=== PATIENT | female | born 1980 | race Caucasian/White ===

== ENCOUNTER → 2024-04-17 08:53 | Outpatient (REF) | payer BC, SELFPAY | LOC: WDC 08:53 | PROVIDERS: ATTENDING PHYSICIAN Obstetrics & Gynecology; FAMILY PHYSICIAN Nurse Practitioner Adult Health | DX: N63.22 Unspecified lump in the left breast, upper inner quadrant (principal) | CPT/HCPCS: 76642; 77061; 77065 ==

== ENCOUNTER 2024-09-06 12:55 | Outpatient (RCR) | payer BC, SELFPAY | END 2024-09-06 23:59 | disposition home or self-care (01) | LOC: RPT 12:55 | PROVIDERS: ATTENDING PHYSICIAN Obstetrics & Gynecology; FAMILY PHYSICIAN Nurse Practitioner Adult Health | DX: N81.10 Cystocele, unspecified (principal); N81.6 Rectocele; Z73.6 Limitation of activities due to disability | CPT/HCPCS: 97110; 97112; 97161; 97530 ==

== ENCOUNTER → 2024-09-11 08:33 | Outpatient (REF) | payer BC, SELFPAY | LOC: HWWDC 08:33 | PROVIDERS: ATTENDING PHYSICIAN Obstetrics & Gynecology; FAMILY PHYSICIAN Nurse Practitioner Adult Health | DX: Z12.31 Encounter for screening mammogram for malignant neoplasm of breast (principal) | CPT/HCPCS: 77063; 77067 ==

== ENCOUNTER → 2024-09-22 09:50 | Outpatient (REF) | payer BC, SELFPAY | LOC: WDC 09:50 | PROVIDERS: ATTENDING PHYSICIAN Obstetrics & Gynecology; FAMILY PHYSICIAN Nurse Practitioner Adult Health | DX: R92.8 Other abnormal and inconclusive findings on diagnostic imaging of breast (principal) | CPT/HCPCS: 76642 ==

== ENCOUNTER 2024-09-27 08:47 | Outpatient (RCR) | payer BC, SELFPAY | END 2024-09-27 23:59 | disposition home or self-care (01) | LOC: RPT 08:47 | PROVIDERS: ATTENDING PHYSICIAN Obstetrics & Gynecology; FAMILY PHYSICIAN Nurse Practitioner Adult Health | DX: N81.10 Cystocele, unspecified (principal); N81.6 Rectocele; Z73.6 Limitation of activities due to disability | CPT/HCPCS: 97110; 97112 ==

== ENCOUNTER 2024-10-25 08:39 | Outpatient (RCR) | payer BC, SELFPAY | END 2024-10-25 23:59 | disposition home or self-care (01) | LOC: RPT 08:39 | PROVIDERS: ATTENDING PHYSICIAN Obstetrics & Gynecology; FAMILY PHYSICIAN Nurse Practitioner Adult Health | DX: N81.10 Cystocele, unspecified (principal); N81.6 Rectocele; Z73.6 Limitation of activities due to disability | CPT/HCPCS: 97110; 97112 ==

== ENCOUNTER 2024-11-10 09:35 | Outpatient (RCR) | payer BC, SELFPAY | END 2024-11-10 23:59 | disposition home or self-care (01) | LOC: RPT 09:35 | PROVIDERS: ATTENDING PHYSICIAN Obstetrics & Gynecology; FAMILY PHYSICIAN Nurse Practitioner Adult Health | DX: N81.10 Cystocele, unspecified (principal); N81.6 Rectocele; Z73.6 Limitation of activities due to disability | CPT/HCPCS: 97110; 97112 ==

== ENCOUNTER 2025-01-03 08:51 | Outpatient (RCR) | payer BC, SELFPAY | END 2025-01-03 23:59 | disposition home or self-care (01) | LOC: RPT 08:51 | PROVIDERS: ATTENDING PHYSICIAN Obstetrics & Gynecology; FAMILY PHYSICIAN Nurse Practitioner Adult Health | DX: N81.10 Cystocele, unspecified (principal); N81.6 Rectocele; Z73.6 Limitation of activities due to disability | CPT/HCPCS: 97110; 97112 ==

== ENCOUNTER 2025-01-31 08:53 | Outpatient (RCR) | payer BC, SELFPAY | END 2025-01-31 23:59 | disposition home or self-care (01) | LOC: RPT 08:53 | PROVIDERS: ATTENDING PHYSICIAN Obstetrics & Gynecology; FAMILY PHYSICIAN Nurse Practitioner Adult Health | DX: N81.10 Cystocele, unspecified (principal); N81.6 Rectocele; Z73.6 Limitation of activities due to disability | CPT/HCPCS: 97110; 97530 ==

== ENCOUNTER 2025-02-21 08:47 | Outpatient (RCR) | payer BC, SELFPAY | END 2025-02-21 23:59 | disposition home or self-care (01) | LOC: RPT 08:47 | PROVIDERS: ATTENDING PHYSICIAN Obstetrics & Gynecology; FAMILY PHYSICIAN Nurse Practitioner Adult Health | DX: N81.10 Cystocele, unspecified (principal); N81.6 Rectocele; Z73.6 Limitation of activities due to disability | CPT/HCPCS: 97110; 97112 ==

== ENCOUNTER 2025-03-21 08:50 | Outpatient (RCR) | payer BC, SELFPAY | END 2025-03-21 23:59 | disposition home or self-care (01) | LOC: RPT 08:50 | PROVIDERS: ATTENDING PHYSICIAN Obstetrics & Gynecology; FAMILY PHYSICIAN Nurse Practitioner Adult Health | DX: N81.10 Cystocele, unspecified (principal); N81.6 Rectocele; Z73.6 Limitation of activities due to disability | CPT/HCPCS: 97110; 97112 ==